=== PATIENT | male | born 1960 | race American Indian/Alaskan Native ===

== ENCOUNTER 2018-09-04 04:56 | Emergency (ER) | payer MEDICARE ==
[2018-09-04 05:49] LABS: Basophils % (Auto) 0.2 % (0.0-1.8); Eosinophils # (Auto) 0.1 K/mm3 (0.0-0.4); Eosinophils % (Auto) 1.3 % (0.0-4.3); Hematocrit 46.6 % (35.5-45.6); Hemoglobin 15.3 gm/dl (11.8-15.2); Lymphocytes # (Auto) 0.7 K/mm3 (1.2-5.4); Lymphocytes % (Auto) 6.9 % (13.4-35.0); Mean Corpuscular HGB Conc 33 % (32-34); Mean Corpuscular Volume 84 fl (84-94); Monocytes # (Auto) 0.6 K/mm3 (0.0-0.8); Monocytes % (Auto) 5.9 % (0.0-7.3); Platelet Count 375 K/mm3 (140-440); Red Blood Count 5.56 M/mm3 (3.65-5.03); Red Cell Distribution Width 15.4 % (13.2-15.2)
[2018-09-04 06:10] LABS: Alanine Aminotransferase 18 units/L (7-56); Albumin 4.6 g/dL (3.9-5); BUN/Creatinine Ratio 18; Blood Urea Nitrogen 22 mg/dL (9-20); Calcium 9.7 mg/dL (8.4-10.2); Hemolysis Index 39
[2018-09-04 08:29] LABS: Bilirubin,Urine NEG (Negative); Blood,Urine NEG (Negative); Color,Urine Yellow (Yellow); Mucus,Urine FEW /HPF; Protein,Urine <15 mg/dL mg/dL (Negative)
--- NOTE | 2018-09-04 09:07 | Emergency Department Report ---
ED General Adult HPI - General Chief complaint: Abdominal Pain Stated complaint: ABDOMINAL PAIN Time Seen by Provider: 09/04/18 08:58 Source: patient Mode of arrival: Ambulatory Limitations: No Limitations - History of Present Illness Initial comments: Mr. Allred is a very pleasant healthy 58-year-old male with history of hypertension and dyslipidemia who presents with flu-like symptoms. He has had nasal congestion and sinus pressure for the last several days. He also has mild epigastric stomach upset. His daughter has similar symptoms. She is currently being treated in the ER for fever. He started a new medication for his right wrist recently. Initially started on ibuprofen. Now on a more powerful anti- inflammatory medication. He feels that this medication may be too strong for his kidneys. He denies any fever. Denies any chills. Denies any vomiting. Denies diarrhea. -: Gradual Location: head, abdomen Severity scale (0 -10): 4 Quality: aching Consistency: now resolved Improves with: none Worsens with: none Associated Symptoms: denies other symptoms Treatments Prior to Arrival: none - Related Data Home Medications Medication Instructions Recorded Confirmed Last Taken Pravastatin [Pravachol] 20 mg PO QHS 08/16/18 08/16/18 08/14/18 amLODIPine [Norvasc] 10 mg PO DAILY 08/16/18 08/16/18 08/15/18 Previous Rx's Medication Instructions Recorded Last Taken Type Ibuprofen [Motrin] 800 mg PO Q8HR PRN #20 tablet 08/16/18 Unknown Rx Famotidine 20 mg PO BID 30 Days #60 tablet 09/04/18 Unknown Rx Allergies Allergy/AdvReac Type Severity Reaction Status Date / Time No Known Allergies Allergy Unverified 08/16/18 10:11 ED Review of Systems ROS: Stated complaint: ABDOMINAL PAIN Other details as noted in HPI Comment: All other systems reviewed and negative Constitutional: denies: fever, malaise Respiratory: denies: cough Cardiovascular: denies: chest pain ED Past Medical Hx - Past Medical History Previous Medical History?: Yes Hx Hypertension: Yes Additional medical history: High cholesterol - Surgical History Past Surgical History?: Yes Additional Surgical History: Left shoulder - Social History Smoking Status: Current Every Day Smoker Substance Use Type: None - Medications Home Medications: Home Medications Medication Instructions Recorded Confirmed Last Taken Type Ibuprofen [Motrin] 800 mg PO Q8HR PRN #20 tablet 08/16/18 Unknown Rx Pravastatin [Pravachol] 20 mg PO QHS 08/16/18 08/16/18 08/14/18 History amLODIPine [Norvasc] 10 mg PO DAILY 08/16/18 08/16/18 08/15/18 History Famotidine 20 mg PO BID 30 Days #60 tablet 09/04/18 Unknown Rx ED Physical Exam - General Limitations: No Limitations - Other Other exam information: General: Well-appearing, no acute distress HEENT: Normocephalic atraumatic pupils equal round and reactive to light anicteric sclera Nose: no rhinorrhea Oropharynx: Clear mucous membranes no lesions Neck: supple, no meningismus Chest: Clear to auscultation bilaterally no rales rhonchi no wheezes Cardiac: Regular rate and rhythm no murmurs no rubs no gallops Abdomen: Soft nontender nondistended positive bowel sounds no guarding Extremities: No cyanosis no clubbing no edema Neuro: Moves all extremities 4, no gross deficits Psychiatric: Alert and oriented 4 normal affect normal judgment normal insight ED Course Vital Signs 09/04/18 05:05 Temperature 97.6 F Pulse Rate 110 H Respiratory 18 Rate Blood Pressure 116/74 O2 Sat by Pulse 100 Oximetry ED Medical Decision Making - Lab Data Result diagrams: 09/04/18 05:27 09/04/18 05:27 - Medical Decision Making Mr. Allred presents with flulike symptoms of nasal congestion and abdominal pain. He denies any abdominal pain. No evidence of peritonitis. Normal white count. labs reviewed. I suggested supportive care. Suggested discontinuing new anti-inflammatory medications. Prescribed famotidine. Recommended follow-up with his primary care physician. Critical care attestation.: If time is entered above; I have spent that time in minutes in the direct care of this critically ill patient, excluding procedure time. ED Disposition Clinical Impression: Flu-like symptoms, Abdominal pain Disposition: DC-01 TO HOME OR SELFCARE Is pt being admited?: No Does the pt Need Aspirin: No Condition: Stable Instructions: Abdominal Pain (ED) Prescriptions: Famotidine 20 mg PO BID 30 Days #60 tablet Referrals: PRIMARY CARE, [Primary Care Provider] - 3-5 Days
[2018-09-04] MEDS ORDERED: NACL 0.9% 1000 ML 1,000 ML IV ONE (09:27)
[2018-09-04] MEDS ORDERED: NACL 0.9% 1000 ML 1,000 ML ONE (09:31)
--- NOTE | 2018-09-04 10:44 | Cat Scan Report ---
CT ABDOMEN PELVIS WITH CONTRAST: HISTORY: abdominal pain. COMPARISON: none. TECHNIQUE: Helical CT in 1.25mm intervals following IV contrast. Sagittal and coronal reconstructions. FINDINGS: Lung bases: Normal. Liver: Normal. Biliary system: Normal. Pancreas: Normal. Spleen: Normal. Kidneys/ureters/bladder: Both kidneys are normal size, contour and position. A 2.9 x 2.2 cm cyst is noted at the superior pole of the left kidney. There are also scattered tiny millimetric cysts in both kidneys. No evidence for mass, calculus or hydronephrosis. The ureters and bladder are unremarkable. Adrenal glands: Normal. Aorta: Mild distal calcifications. No aneurysm or dissection. Intestines: No oral contrast was administered which limits this exam. There is no evidence for focal inflammation or bowel obstruction. There is moderate fluid in the small bowel loops which could represent gastroenteritis. Appendix: Normal. Ascites: None. Adenopathy: None. Musculoskeletal: Intact. Moderate degenerative disc disease at L4-5 and L5-S1. IMPRESSION: No acute inflammatory process is identified. Fluid in small bowel loops is nonspecific but could be related to gastroenteritis. Renal cysts.
[2018-09-04 12:46] VITALS: BP 124/81
== END 2018-09-04 12:43 | disposition home or self-care (01) ==
LOC: ED 04:56
DX: J11.1 Influenza due to unidentified influenza virus with other respiratory manifestations (principal); R10.9 Unspecified abdominal pain; F17.200 Nicotine dependence, unspecified, uncomplicated; I10 Essential (primary) hypertension; E78.00 Pure hypercholesterolemia, unspecified
CPT/HCPCS: 36415; 74177; 80053; 81001; 85025; 99284; J7030; Q9967